=== PATIENT | male | born 1935 | race Caucasian/White ===

== ENCOUNTER 2017-03-25 09:54 | Emergency (ER) | payer OTHER ==
[~2017-03-25] VITALS: Ht 177.8 cm; Wt 89.4 kg
[~2017-03-25 09:54] MED LIST: ALBUTEROL0.09 MG/A1 INH; AMOXIL 875 MG875 MG PO; ATORVASTATIN CA10 MG PO; CARDIZEM I125 MG/25 IV; CIPRO 500MG TA500 MG PO; CIPRO500 M1 PO; ECOTRIN81 MG PO; FISH OIL CONCEN1 SGL PO; FLAG500 PO; FLUZONE HI180 MCG/02 IM; ICAPS AREDS PO; KRILL OIL500 MG PO; METOPROLOL SUCC25 MG PO; NORVASC5 M1 PO; PREDNISONE 20MG20 MG PO; TAMSULOSIN HYD0.4 MG PO; TESSALON PERLE100 MG PO; VALSARTAN160 MG PO; XARELTO20 MG PO
[2017-03-25] MEDS ORDERED: ASPIRIN81 M4 PO (11:24)
[2017-03-25] MEDS ORDERED: PRAVASTATIN SOD10 M2 PO (11:25)
[2017-03-25] MEDS ORDERED: PRESERVISION A1 EACH PO (11:25)
[2017-03-25] MEDS ORDERED: BICALUTAMIDE50 M1 PO (11:25)
[2017-03-25] MEDS ORDERED: NITROFURANTOIN100 M6 PO (11:26)
[2017-03-25] MEDS ORDERED: FLOMAX0.4 M1 PO (11:27)
--- NOTE | 2017-03-25 11:35 | ED GI/GU/ABDOMINAL COMPLAINT ---
History of Present Illness General Chief Complaint: Male Genitourinary Problems Stated Complaint: HEMATURIA Source: patient Exam Limitations: no limitations Vital Signs & Intake/Output Vital Signs & Intake/Output Vital Signs Date Time Temp Pulse Resp B/P B/P Pulse O2 O2 Flow FiO2 Mean Ox Delivery Rate 03/25 1237 97.7 71 16 135/78 97 Room Air 03/25 1154 97 Room Air 03/25 0957 96.5 80 16 146/87 95 Room Air Allergies Coded Allergies: NO KNOWN ALLERGIES (02/15/13) Reconcile Medications Amlodipine Besylate (Norvasc) 5 MG TABLET 1 TAB PO DAILY BP (Reported) Aspirin (Aspirin*) 81 MG TAB.CHEW 1 TAB PO DAILY HEART HEALTH (Reported) Bicalutamide 50 MG TABLET 1 TAB PO DAILY UNKNOWN (Reported) Ciprofloxacin HCl (Cipro) 250 MG TABLET 1 TAB PO BID UTI Nitrofurantoin Monohyd/M-Cryst (Nitrofurantoin [place]-Mcr 100 MG) 100 MG CAPSULE 1 CAP PO MoWeFr ANTIBIOTIC, INFECTION (Reported) Pravastatin Sodium 10 MG TABLET 1 TAB PO DAILY CHOLESTEROL (Reported) Tamsulosin HCl (Flomax) 0.4 MG CAP.ER.24H 1 CAP PO BID bph (Reported) Vit A/Vit C/Vit E/Zinc/Copper (Preservision Areds Tablet) 7,160-113 TABLET 1 TAB PO DAILY EYE (Reported) Triage Note: 81 Y/O MALE C/O R FLANK PAIN AND HEMATURIA (1 EPISODE) SINCE THIS AM. PT HAS HX PROSTATE CA AND STRAIGHT CATHS SELF. STRAIGHT CATHED THIS MORNING WHEN PAIN BEGAN AND NOTICED THE HEMATURIA. STATES PAIN IS NOW IMPROVED BUT HES CONCERNED ABOUT BLOOD IN URINE. DENIES N/V/D. DENIES FEVERS. ARRIVED WITH URINE SAMPLE FROM APPROX 30 MIN AGO; PER [facility]IM[facility] OLM[facility] TO SEND. URINE TRIO SENT (CLEAR, HEMATURIA) Triage Nurses Notes Reviewed? yes Onset: Abrupt Duration: day(s):, constant, continues in ED Timing: recent history Quality/Severity: burning Location: urethral Radiation: no radiation Activities at Onset: none No Modifying Factors: none HPI: 81-year-old male comes into emergency room for further evaluation of increased frequency with urination burning and some right-sided back pain. Patient had a history of a TURP procedure many years ago and self cath's about 4 times a day. He has a history of frequent urinary tract infections. He denies any fever or vomiting. He reports that the back pain in the gross blood he noticed today when he straight cath was not consistent with his normal urinary tract infections. He comes in for further evaluation. Denies any chest pain shortness of breath. Denies any changes in bowel movements. (Alek Danielson) Past History Travel History Traveled to [place] past 21 day No Medical History Any Pertinent Medical History? see below for history Neurological: NONE EENT: cataracts, macular degeneration Cardiovascular: AFIB, hypertension, hyperlipidemia Respiratory: bronchitis Gastrointestinal: NONE Hepatic: NONE Renal: benign prost hyperplasia, prostate ca. HELDER outlet obsuruction Musculoskeletal: NONE Psychiatric: NONE Endocrine: NONE Blood Disorders: NONE Cancer(s): prostate cancer, RADIATION DAMPER FITTER/Reproductive: NONE History of MRSA: No History of VRE: No History of CDIFF: No Surgical History Surgical History: tonsillectomy ablation Psychosocial History Who do you live with Spouse Services at Home None What is your primary language Georgian Tobacco Use: Quit >30 days ago Family History Family History, If Any: FATHER (bladder cancer). FH: bladder cancer MOTHER (heart issues, she was on Coumadin). Relation not specified for: No family history of disorders Hx Contributory? No (Alek Danielson) Review of Systems Review of Systems Constitutional: Reports: no symptoms. EENTM: Reports: no symptoms. Respiratory: Reports: no symptoms. Cardiovascular: Reports: no symptoms. GI: Reports: no symptoms. Genitourinary: Reports: see HPI. Musculoskeletal: Reports: no symptoms. Skin: Reports: no symptoms. Neurological/Psychological: Reports: no symptoms. Hematologic/Endocrine: Reports: no symptoms. Immunologic/Allergic: Reports: no symptoms. All Other Systems: Reviewed and Negative (Alek Danielson) Physical Exam Physical Exam General Appearance: well developed/nourished, alert, awake Head: atraumatic, normal appearance Eyes: Bilateral: normal appearance, EOMI. Ears, Nose, Throat, Mouth: hearing grossly normal, moist mucous membrane Neck: normal inspection Respiratory: no respiratory distress Gastrointestinal: soft, non-tender Back: normal inspection, normal range of motion, NO cva TENDERNESS Extremities: normal range of motion Neurologic/Psych: awake, alert, oriented x 3 Skin: intact, normal color Core Measures ACS in differential dx? No Sepsis Present: No Sepsis Focused Exam Completed? No (Darrick ESTRADA,Alek) Progress Differential Diagnosis: pyelonephritis, STD, testicular torsion, ureterolithiasis, urinary retention, urethritis, UTI/pyelo Plan of Care: Orders Procedure Date/time Status Add-on Test (ER Only) 03/25 113 Active COMPREHENSIVE METABOLIC PANEL 03/25 113 Complete CBC WITHOUT DIFFERENTIAL 03/25 113 Complete CULTURE,URINE 03/25 0959 Active URINALYSIS 03/25 0959 Complete Laboratory Tests 03/25/17 1142: Anion Gap 12, Estimated GFR 34 L, BUN/Creatinine Ratio 15.8, Glucose 161 H, Calcium 9.3, Total Bilirubin 0.9, AST 22, ALT 29, Alkaline Phosphatase 95, Total Protein 7.8, Albumin 4.5, Globulin 3.3, Albumin/Globulin Ratio 1.4, CBC w Diff MAN DIFF ORDERED, RBC 4.11 L, MCV 87.9, MCH 29.8, RDW 14.3, MPV 9.3, Gran % 92.3 H, Lymphocytes % 3.3 L, Monocytes % 4.0, Eosinophils % 0.3, Basophils % 0.1, Absolute Granulocytes 15.0 H, Segmented Neutrophils 90 H, Band Neutrophils 5, Absolute Lymphocytes 0.5 L, Lymphocytes 2 L, Monocytes 2, Absolute Monocytes 0.6, Absolute Eosinophils 0.1, Basophils 1, Absolute Basophils 0, Platelet Estimate ADEQUATE, Basophilic Stippling RARE, PUBS MCHC 33.9 03/25/17 1003: Urine Color BLDY H, Urine Clarity HAZY H, Urine pH 7.0, Ur Specific [place] 1.020, Urine Protein >=300 H, Urine Ketones NEG, Urine Nitrite POS H, Urine Bilirubin NEG@ICTO, Urine Urobilinogen 0.2, Ur Leukocyte Esterase TRACE H, Ur Microscopic SEDIMENT EXAMINED, Urine RBC PACKD H, Urine WBC 10-15 H, Micro UA Comment MORE INFO: H, Urine Hemoglobin LARGE H, Urine Glucose NEG Microbiology 03/25 1003 URINE ROUT: Urine Culture - RECD Diagnostic Imaging: Viewed by Me: CT Scan. Discussed w/RAD: CT Scan. Radiology Impression: PATIENT: HALI MAN PRESENT AGE: 81 PATIENT ACCOUNT NO: [id number] : 37 LOCATION: [facility] ORDERING PHYSICIAN: Alek ESTRADA SERVICE DATE: 03/25/173442 EXAM TYPE : CAT - CT ABD & PELVIS W/O IV CONTRAS EXAMINATION: CT ABDOMEN AND PELVIS WITHOUT CONTRAST CLINICAL INFORMATION: Right flank pain. Blood in urine. History of prostate cancer. COMPARISON: 03/11/2017 TECHNIQUE: Multidetector volumetric imaging was performed from the superior aspect of the liver through the pubic symphysis. Sagittal and coronal reformatted images were obtained on the technologist's workstation. DLP: 432 mGy-cm FINDINGS: LUNG BASES: The visualized lung bases are unremarkable. LIVER, GALLBLADDER, AND BILIARY TREE: The liver is normal in size, shape, and attenuation. Hepatic cysts are again noted. No new hepatic lesion or biliary ductal dilatation is present. Gallstones are present in the gallbladder lumen. No gallbladder wall thickening or pericholecystic fluid. PANCREAS: Unremarkable. SPLEEN: Unremarkable. ADRENAL GLANDS: Unremarkable. KIDNEYS AND URETERS: The kidneys are normal in size, shape, and attenuation. There is redemonstration of moderate left hydroureteronephrosis which has slightly worsened when compared to prior. Increased perinephric and periureteral stranding. There is also worsening moderate right hydroureteronephrosis. Increasing perinephric and periureteral stranding. No obstructing calculus. No renal calculi. BLADDER: The bladder is partially distended. No abnormal wall thickening or adjacent inflammation. GASTROINTESTINAL TRACT: The stomach is decompressed with no gross abnormality. The small bowel is normal in caliber without obstruction. Fecalization of the distal ileum suggests slow transit. Normal appendix. No colonic wall thickening or inflammatory change. There is colonic diverticulosis without diverticulitis. No free air or free fluid. ABDOMINAL WALL: Fat-containing bilateral inguinal hernias. LYMPH NODES: Normal. VASCULAR: There is an infrarenal abdominal aortic aneurysm which measures 3.6 cm in AP dimension. This is unchanged. PELVIC VISCERA: The prostate and seminal vesicles are unremarkable. OSSEOUS STRUCTURES: No acute or suspicious osseous abnormality. Degenerative changes of the spine. Transitional anatomy at the lumbosacral junction. 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 IMPRESSION: Bilateral hydroureteronephrosis. The degree of dilatation has slightly increased from the previous CT with increasing perinephric stranding. No obstructing calculus. Cholelithiasis. Redemonstration of the 3.6 cm abdominal aortic aneurysm. This is unchanged. DICTATED BY: Nick Truong MD DATE/TIME DICTATED:03/25/171341 SR RISK MANAGEMENT CONSULTANT:RHONDA DATE/TIME TRANSCRIBED:1341 CONFIDENTIAL, DO NOT COPY WITHOUT APPROPRIATE AUTHORIZATION. < Electronically signed in Other Vendor System> SIGNED BY: Nick Truong MD 03/25/17 1350 Initial ED EKG: none (Darrick ESTRADA,Alek) Departure Departure Disposition: HOME OR SELF CARE Condition: Stable Clinical Impression Primary Impression: Pyelonephritis Referrals: Silvia CLARKE,Rogerio Ruiz (PCP/Family) Additional Instructions: Take ciprofloxacin as prescribed. Follow-up with your urologist. Return if any fever vomiting or any other concerns worsening symptoms. Please go over all results of today's visit with your primary care doctor. Contact your primary care doctor to let them know you were here in the emergency room. There may be nonspecific findings which may not be related to your visit today here in the emergency room but may require further evaluation and chronic monitoring by your primary care doctor. If you had a laceration today the chance of foreign body always remains. You should follow-up with your primary care doctor for recheck in 3-5 days for a wound check. If you had an x-ray done there is a chance that a fracture could have been missed on initial read and you should follow-up with your primary care doctor for repeat x-rays if symptoms persist. If your blood pressure was elevated here in the emergency room please have rechecked by [facility] primary care doctor within the next 48. If you were prescribed a narcotic here in the emergency room or any type of controlled substances you're not allowed to drive while taking this medication or operate any type of heavy machinery. Narcotics can make you feel lightheaded dizziness nausea and can cause constipation. You may need to poultry picker a stool softener. Thank you for choosing [facility] emergency room. Please return to the emergency room immediately if you have any other concerns worsening of symptoms. Departure Forms: Customer Survey General Discharge Information Prescriptions: Current Visit Scripts Ciprofloxacin HCl (Cipro) 1 TAB PO BID #14 TAB Comments 03/25/2017 2:47:49 PM The patient clinically looks well. He does not want to be admitted to the hospital. Patient will be as prescribed oral ciprofloxacin. Previous urine cultures have shown sensitivity to ciprofloxacin. He has chronic hydroureter nephrosis but it is increased on this CT scan. it Is likely due to the fact the patient has urinary outlet obstruction and has to self cath. Despite elevated white count the patient does not appear to be toxic appearing. I feel that outpatient management with oral antibiotics is reasonable this time and patient can follow-up with his urologist. He was instructed to return immediately if any fever vomiting or any concerns worsening symptoms for admission. He understands and agrees with plan of care. Case was discussed with Dr. edward. (Alek Danielson) PA/SPORTS RECRUITER Co-Sign Statement Statement: ED Attending supervision documentation- x I saw and evaluated the patient. I have also reviewed all the pertinent lab results and diagnostic results. I agree with the findings and the plan of care as documented in the PA's/SPORTS RECRUITER's documentation. [] I have reviewed the ED Record and agree with the PA's/SPORTS RECRUITER's documentation. [] Additions or exceptions (if any) to the PAs/SPORTS RECRUITER's note and plan are summarized below: [] (Abigail CLARKE,Nick)
[2017-03-25 11:53] LABS: ABSOLUTE BASOPHIL COUNT 0 /CUMM (0.0-0.2); ABSOLUTE EOSINOPHIL COUNT 0.1 /CUMM (0.0-0.7); ABSOLUTE LYMPH COUNT 0.5 /CUMM (1.2-3.4); ABSOLUTE MONOCYTE COUNT 0.6 /CUMM (0.10-0.60); BASOPHIL % 0.1 % (0.0-2.0); EOSINOPHIL % 0.3 % (0-5); GRANULOCYTE % 92.3 % (42.2-75.2); HEMATOCRIT 36.2 % (42-52); MEAN CORPUSCULAR HGB 29.8 PG (27.0-31.0); MEAN CORPUSCULAR HGB CONC 33.9 G/DL (33.0-37.0); MEAN CORPUSCULAR VOLUME 87.9 FL (80.0-94.0); MEAN PLATELET VOLUME 9.3 FL (7.4-10.4); PLATELET COUNT 182 /CUMM (130-400); RBC DISTRIBUTION WIDTH 14.3 % (11.5-14.5); RED BLOOD CELL CT 4.11 /CUMM (4.70-6.10); WHITE BLOOD CELL COUNT 16.3 /CUMM (4.8-10.8)
[2017-03-25 12:37] VITALS: BP 135/78
--- NOTE | 2017-03-25 13:50 | CT SCAN REPORT ---
EXAMINATION: CT ABDOMEN AND PELVIS WITHOUT CONTRAST CLINICAL INFORMATION: Right flank pain. Blood in urine. History of prostate cancer. COMPARISON: 03/11/2017 TECHNIQUE: Multidetector volumetric imaging was performed from the superior aspect of the liver through the pubic symphysis. Sagittal and coronal reformatted images were obtained on the technologist's workstation. DLP: 432 mGy-cm FINDINGS: LUNG BASES: The visualized lung bases are unremarkable. LIVER, GALLBLADDER, AND BILIARY TREE: The liver is normal in size, shape, and attenuation. Hepatic cysts are again noted. No new hepatic lesion or biliary ductal dilatation is present. Gallstones are present in the gallbladder lumen. No gallbladder wall thickening or pericholecystic fluid. PANCREAS: Unremarkable. SPLEEN: Unremarkable. ADRENAL GLANDS: Unremarkable. KIDNEYS AND URETERS: The kidneys are normal in size, shape, and attenuation. There is redemonstration of moderate left hydroureteronephrosis which has slightly worsened when compared to prior. Increased perinephric and periureteral stranding. There is also worsening moderate right hydroureteronephrosis. Increasing perinephric and periureteral stranding. No obstructing calculus. No renal calculi. BLADDER: The bladder is partially distended. No abnormal wall thickening or adjacent inflammation. GASTROINTESTINAL TRACT: The stomach is decompressed with no gross abnormality. The small bowel is normal in caliber without obstruction. Fecalization of the distal ileum suggests slow transit. Normal appendix. No colonic wall thickening or inflammatory change. There is colonic diverticulosis without diverticulitis. No free air or free fluid. ABDOMINAL WALL: Fat-containing bilateral inguinal hernias. LYMPH NODES: Normal. VASCULAR: There is an infrarenal abdominal aortic aneurysm which measures 3.6 cm in AP dimension. This is unchanged. PELVIC VISCERA: The prostate and seminal vesicles are unremarkable. OSSEOUS STRUCTURES: No acute or suspicious osseous abnormality. Degenerative changes of the spine. Transitional anatomy at the lumbosacral junction. 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 IMPRESSION: Bilateral hydroureteronephrosis. The degree of dilatation has slightly increased from the previous CT with increasing perinephric stranding. No obstructing calculus. Cholelithiasis. Redemonstration of the 3.6 cm abdominal aortic aneurysm. This is unchanged.
[2017-03-25] MEDS ORDERED: CIPRO250 M1 PO (14:19)
== END 2017-03-25 14:28 ==
LOC: ERH 09:54
PROVIDERS: Physician Assistant Medical
DX: N12 Tubulo-interstitial nephritis, not specified as acute or chronic (principal)
CPT/HCPCS: 74176; 81001; 87086